=== PATIENT | female | born 2000 | race Caucasian/White ===

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

== ENCOUNTER 2021-03-31 22:35 | Emergency (ER) | payer BC ==
[2021-03-31] MEDS ORDERED: Ondansetron PF 4 MG/2 ML Vial ONE (23:27)
[2021-03-31] MEDS ORDERED: Acetaminophen 500 MG TAB ONE (23:27)
[2021-03-31] MEDS ORDERED: Ketorolac Tromethamine 30 MG/ML VIAL ONE (23:27)
[2021-04-01 00:05] LABS: #Eosinphils 0.1 thou/uL (0.0-0.7); #Lymphocytes 1.4 thou/uL (1.20-3.40); #Monocytes 0.5 thou/uL (0.11-0.59); #Neutrophils 5.7 thou/uL (1.40-6.50); %Basophils 0.3 % (0.0-1.0); %Eosinophils 0.7 % (0.0-10.0); %Lymphocytes 17.9 % (28.0-48.0); %Monocytes 6.5 % (0.0-4.0); %Neutrophils 74.7 % (31.0-61.0); Hemoglobin 13.9 g/dL (12.0-16.0); Mean Corpuscular HGB CONC 35.1 g/dL (32.0-36.0); Mean Corpuscular Hemoglobin 32.7 pg (25.0-35.0); Mean Corpuscular Volume 93.2 fL (78.0-98.0); Mean Platelet Volume 7.2 fL (7.4-10.4); Platelet Count 187 thou/uL (130-400); RBC Distribution Width 11.2 % (11.5-14.5); Red Blood Cell (RBC) Count 4.23 mill/uL (4.00-5.20); White Blood Cell (WBC) Count 7.6 thou/uL (4.8-10.8)
[2021-04-01 00:22] LABS: ALT (SGPT) 11 U/L (8-55); AST (SGOT) 18 U/L (5-34); Albumin 3.9 g/dL (3.5-5.0); Alkaline Phosphatase 85 U/L (40-100); Anion Gap 13 mmol/L (10-20); BUN (Urea Nitrogen) 7 mg/dL (7.0-18.7); Bilirubin, Total 0.7 mg/dL (0.2-1.2); Calc. Creatinine Clearance 0 mL/min (70-130); Calcium 8.6 mg/dL (7.8-10.44); Carbon Dioxide 22 mmol/L (22-29); Chloride 108 mmol/L (98-107); Globulin 2.7 g/dL (2.4-3.5); Glucose 100 mg/dL (70-105); Potassium 3.6 mmol/L (3.5-5.1); Protein, Total 6.6 g/dL (6.0-8.3); Sodium 139 mmol/L (136-145)
[2021-04-01 00:52] LABS: SARS-CoV-2 NAA Rapid Test Not Detected (NotDetected)
[2021-04-01 00:57] LABS: Bilirubin Negative (Negative); Blood, Urine Negative (Negative); Clarity Clear (Clear); Glucose, Urine (Dipstick) Normal (Negative); Ketone, Urine 20 mg/dL (Negative); Leukocyte Negative Leu/uL (Negative); Nitrite Negative (Negative); Protein, Urine (Dipstick) Negative (Neg-Trace); Specific Gravity, Urine 1.008 (1.002-1.036); Urobilinogen Normal mg/dL (Less than 2)
== END 2021-04-01 02:30 | disposition home or self-care (01) ==
LOC: ERS 22:35
DX: J04.0 Acute laryngitis (principal); J20.9 Acute bronchitis, unspecified; J45.909 Unspecified asthma, uncomplicated; Z20.822 Contact with and (suspected) exposure to COVID-19
CPT/HCPCS: 0240U; 36415; 71045; 80053; 81003; 85025; 87081; 87430; 96374; 96375; J1885; J2405